=== PATIENT | female | born 1945 | race Caucasian/White ===

== ENCOUNTER → 2020-06-03 10:59 | Outpatient (CLI) | payer MEDICARE, BC, SELFPAY ==
--- NOTE | ~2020-06-03 | US_ITS ---
EXAMINATION: US retroperitoneal comp DATE: 06/03/2020 11:26 INDICATION: Bilateral hydronephrosis TECHNIQUE: Multiple grayscale, color Doppler, and pulsed Doppler images of the kidneys and renal diya vikas were obtained. COMPARISON: None. FINDINGS: The right kidney measures 10.2 x 5.4 x 5.8 cm. The left kidney measures 10.9 x 4.3 x 5.4 cm. The kidn eys demonstrate normal echogenicity. Bilateral anechoic renal cysts measuring up to 2.1 cm and 1.5 cm in the right kidney and 1.4 cm and the left kidney. There is no hydronephrosis in either kidney. No stones identified. The bladder is normal. IMPRESSION: 1. Bilateral renal cysts. Otherwise normal kidneys without hydronephrosis. Reviewed, dictated and finalized at location A.
== END ==
DX: N13.30 Unspecified hydronephrosis (principal); N28.1 Cyst of kidney, acquired
CPT/HCPCS: 76770

== ENCOUNTER → 2020-08-07 09:21 | Outpatient (CLI) | payer MEDICARE, BC, SELFPAY ==
--- NOTE | ~2020-08-07 | DEXA_ITS ---
Bone Density Report Name: Viv Contreras Age: 75 Sex: Female Ethnicity: White Date of : 1945 Indication: postmenopausal; screening for osteoporosis; height loss; prior fracture; hysterectomy; Referring Provider: LALA MOLINA Study: Bone densitometry was performed. Exam Date: August 07, 2020 Accession number: [id number] Bone Density: Region BMD T-score Z-score Classification AP Spine (L1-L4) 0.780 -2.4 0.1 Osteopenia Femoral Neck (Left) 0.599 -2.2 -0.1 Osteopenia Total Hip (Left) 0.690 -2.1 -0.2 Osteopenia Femoral Neck (Right) 0.552 -2.7 -0.5 Osteoporosis Total Hip (Right) 0.650 -2.4 -0.5 Osteopenia Total Hip Mean 0.670 -2.3 -0.4 Osteopenia World Health Organization criteria for BMD impression classify patients as: Normal (T-score at or above -1.0), Osteopenia (T-score between -1.0 and -2.5), or Osteoporosis (T-score at or below -2.5). 10-year Fracture Risk: FRAX not reported because: Some T-score for Spine Total or Hip Total or Femoral Neck at or below -2.5 Clinical Information Provided by Patient: Has had a low trauma fracture Has used the following medications: Vitamin D Has the following medical conditions: Hysterectomy Patient maximum height was 63 Menopause Age: 30 Drinks caffeinated beverages Onset of menses at age 10 Number of children 3 Impression: The patient has established osteoporosis, based on the Right Femoral Neck T-score and the existence of a prior fracture. The patient has risk factors, including: previous fracture. Discussion: HIGH RISK OF FRACTURE. BONE DENSITY IS UNDESIRABLY LOW AT ONE OR MORE SKELETAL SITES, CONSISTENT WITH POSTMENOPAUSAL OSTEOPOROSIS. This patient's lowest T-score, in a patient who has previously fractured, meets the World Health Organization's (WHO) criteria for severe osteoporosis. In untreated patients, the risk of osteoporotic fracture increases approximately two-fold for each 1.0 SD decrease in T-score. Low bone density is not the only risk factor for fracture; also consider factors such as patient's age, frailty or poor health, risk of falling, risk of injury, previous osteoporotic fracture, family history of osteoporosis, cigarette smoking, low body weight, etc. Not everyone with low bone mineral density has osteoporosis; osteomalacia and other metabolic bone disorders should also be considered. Patients who have osteoporosis should be evaluated for specific diseases and conditions (secondary causes) that may cause or contribute to bone loss. The [place] [employer]ocr[employer] (AACE) and National Osteoporosis Foundation (NOF) recommend pharmacologic intervention for all postmenopausal women whose T-score is in this range. The patient should follow a healthful lifestyle (good nutrition with adequate calcium and vitamin D, and a
== END ==
DX: M81.0 Age-related osteoporosis without current pathological fracture (principal); M85.852 Other specified disorders of bone density and structure, left thigh; M85.851 Other specified disorders of bone density and structure, right thigh
CPT/HCPCS: 77080

== ENCOUNTER → 2021-06-18 09:17 | Outpatient (CLI) | payer MEDICARE, BC, SELFPAY ==
--- NOTE | ~2021-06-18 | US_ITS ---
EXAMINATION: US retroperitoneal comp DATE: 06/18/2021 10:07 INDICATION: Bilateral hydronephrosis TECHNIQUE: Multiple ultrasound grayscale images of the kidneys were obtained. COMPARISON: 06/03/2020 FINDINGS: The right kidney measures 9.4 x 4.1 x 5.6 cm. The left kidney measures 9.6 x 5.0 x 3.9 cm. The kidney s demonstrate normal echogenicity. Small bilateral anechoic renal cysts measuring up to 1.9 cm in max imal diameter on the right and 9 mm in maximal diameter on the left. Mild bilateral hydronephrosis. No stones identified. The bladder is normal with bilateral ureteral jets visualized on color Doppler. IMPRESSION: 1. Mild bilateral hydronephrosis which is of indeterminate etiology with bilateral ureteral jets vis ualized in the bladder Reviewed, dictated and finalized at location A. IMPRESSION: 1. Mild bilateral hydronephrosis which is of indeterminate etiology with bilat eral ureteral jets visualized in the bladder
== END ==
DX: N13.30 Unspecified hydronephrosis (principal)
CPT/HCPCS: 76770

== ENCOUNTER → 2022-07-28 11:10 | Outpatient (CLI) | payer MEDICARE, BC, SELFPAY ==
--- NOTE | ~2022-07-28 | US_ITS ---
EXAMINATION: US renal BI DATE: 07/28/2022 11:40 INDICATION: Bilateral hydronephrosis TECHNIQUE: Multiple grayscale and Doppler ultrasound images of the kidneys were obtained. COMPARISON: 06/18/2021 FINDINGS: The right kidney measures 9.7 x 4.1 x 5.6 cm and contains cysts measuring up to 1.9 cm. The left kidney measures 9.2 x 4.7 x 4.6 cm and contains a 9 mm cyst. The kidneys demonstrate normal par enchymal echogenicity. There is persistent mild hydronephrosis. Bilateral ureteral jets are visualize d in the bladder. The bladder is normal. IMPRESSION: 1. Persistent mild bilateral hydronephrosis of unclear etiology. Reviewed, dictated and finalized at location B. ICAL TECH
== END ==
DX: N13.30 Unspecified hydronephrosis (principal)
CPT/HCPCS: 76775

== ENCOUNTER → 2022-10-05 12:22 | Outpatient (CLI) | payer MEDICARE, BC, SELFPAY ==
--- NOTE | ~2022-10-05 | DEXA_ITS ---
Bone Density Report Name: GAIB BONE Age: 77 Sex: Female Ethnicity: White Date of : 1945 Indication: osteopenia; height loss; prior fracture; hysterectomy; postmenopausal Referring Provider: ETHAN Study: Bone densitometry was performed. Exam Date: October 05, 2022 Accession number: [id number] Bone Density: Region BMD T-score Z-score Classification AP Spine (L1-L4) 0.798 -2.3 0.4 Osteopenia Femoral Neck (Left) 0.581 -2.4 -0.1 Osteopenia Total Hip (Left) 0.668 -2.2 -0.2 Osteopenia Femoral Neck (Right) 0.544 -2.7 -0.5 Osteoporosis Total Hip (Right) 0.639 -2.5 -0.5 Osteoporosis Total Hip Mean 0.654 -2.4 -0.4 Osteopenia World Health Organization criteria for BMD impression classify patients as: Normal (T-score at or above -1.0), Osteopenia (T-score between -1.0 and -2.5), or Osteoporosis (T-score at or below -2.5). 10-year Fracture Risk: FRAX not reported because: Some T-score for Spine Total or Hip Total or Femoral Neck at or below -2.5 Previous Exams: Region Exam Age BMD T-score BMD Change BMD Change Date g/cm2 vs Baseline vs Previous AP Spine(L1-L4) 10/05/2022 77 0.798 -2.3 0.018 0.018 08/07/2020 75 0.780 -2.4 Total Hip(Left) 10/05/2022 77 0.668 -2.2 -0.022 -0.022 08/07/2020 75 0.690 -2.1 Total Hip(Right) 10/05/2022 77 0.639 -2.5 -0.011 -0.011 08/07/2020 75 0.650 -2.4 *Denotes significance at 95% confidence level, LSC for AP Spine = 0.022 g/cm2, LSC for Total Hip = 0.027 g/cm2 Clinical Information Provided by Patient: Has had a low trauma fracture Has used the following medications: Vitamin D Has the following medical conditions: Hysterectomy Patient maximum height was 63 Menopause Age: 30 Drinks caffeinated beverages Onset of menses at age 10 Number of children 3 Impression: The patient has established osteoporosis, based on the Right Femoral Neck T-score and the existence of a prior fracture. The patient has risk factors, including: previous fracture. No significant bone loss was observed. Discussion: HIGH RISK OF FRACTURE. BONE DENSITY IS UNDESIRABLY LOW AT ONE OR MORE SKELETAL SITES, CONSISTENT WITH POSTMENOPAUSAL OSTEOPOROSIS. This patient's lowest T-score, in a patient who has previously fractured, meets the World Health Organization's (WHO) criteria for severe osteoporosis. In untreated patients, the risk of osteoporotic fracture increases approximately t
== END ==
DX: M81.0 Age-related osteoporosis without current pathological fracture (principal); M85.89 Other specified disorders of bone density and structure, multiple sites
CPT/HCPCS: 77080

== ENCOUNTER 2023-02-11 09:07 | Emergency (ER) | payer MEDICARE, BC, SELFPAY ==
[2023-02-11 09:29] VITALS: BP 165/84; PULSE 65; RESP 12; TEMP 36.9; O2SAT 96
--- NOTE | 2023-02-11 10:15 | ED.SKABFB ---
HPI - Skin/Abscess/Foreign Bdy General Chief complaint: Skin/Abscess/Foreign Body Stated complaint: Rash Time Seen by Provider: 02/11/23 10:16 Source: patient, RN notes reviewed and old records reviewed Mode of arrival: ambulatory Limitations: no limitations History of Present Illness HPI narrative: 77-year-old female who presents to [facility] with complaints of rash to right inner forearm with some vesicle formation with also new area to the left inner. Patient states she was working in the yard on Monday pulling weeds and developed a rash after being outdoors. Patient reports that rash is itchy, has applied OTC itch cream to rash. Patient denies any shortness of breath or any difficulty with swallowing, complaint: rash Onset (ago): day(s) (3) Location: LUE and RUE Treatments prior to arrival: OTC topical medication Related Data Home Medications Medication Instructions Recorded Confirmed alendronate 70 mg tablet 70 mg PO WEEKLY 02/11/23 02/11/23 alprazolam 0.25 mg tablet 0.25 mg PO DAILY 02/11/23 02/11/23 amlodipine 10 mg tablet 10 mg PO DAILY 02/11/23 02/11/23 atorvastatin 40 mg tablet 40 mg PO DAILY 02/11/23 02/11/23 metoprolol succinate 50 mg 50 mg PO DAILY 02/11/23 02/11/23 tablet,extended release 24 hr Allergies Allergy/AdvReac Type Severity Reaction Status Date / Time No Known Allergies Allergy Verified 02/11/23 09:54 Review of Systems Review of Systems: CONSTITUTIONAL: Denies fever, chills, or sweats. CARDIOVASCULAR: Denies chest pain, palpitations, or edema. RESPIRATORY: Denies cough or dyspnea. SKIN: Reports red rash to bilateral inner forearms which is itchy for 3 days duration MUSCULOSKELETAL: Denies joint pain or myalgia. NEUROLOGIC: Denies headache, numbness, or weakness. All systems reviewed & are unremarkable except as noted in HPI and below PMFSH Past Medical History Medical History (Updated 02/13/23 @ 08:06 by Risa Mcdaniel NP) Anxiety Elevated cholesterol Hypertension Surgical History Surgical History (Updated 02/13/23 @ 08:06 by Risa Mcdaniel NP) H/O: hysterectomy Social History Social History (Updated 02/13/23 @ 08:06 by Risa Mcdaniel NP) Smoking status: Never smoker Alcohol intake: current Alcohol use details: rare use Substance use type: does not use Occupation/Education: retired Gender identity (if verbalized by the patient): Female Comments At time of signature, agree with nursing past medical, surgical, social and family history. There is no relevant family history pertinent to the presenting complaint Exam Narrative: GENERAL: Well-appearing, well-nourished, and in no acute distress. HEAD: Normocephalic, atraumatic. EYES: PERRLA, conjunctivae clear, and EOMI. ENT: Mucous membranes moist. Oropharynx without edema, erythema or lesions. NECK: Supple. No lymphadenopathy CHEST: Clear to auscultation. No respiratory distress. no cough noted SAO2 96% on room air HEART: Regular rate and rhythm. SKIN: Warm, dry.? Patches of red raised rash to bilateral inner forearms that is itchy with some vesicle formation, no drainage noted NEURO:? Alert and oriented x3. PSYCH: Normal mood and affect Course Course Emergency Course: Patient is aware of diagnosis, understands and agrees to treatment plan.? Anticipatory guidance given.? Patient agrees to follow-up as directed and is aware of reasons to seek care at the emergency department. Portions of this record may have been created with voice recognition software Level of Care: Express Care Visit Vital Signs Vital signs: Vital Signs Temperature 36.9 C 02/11/23 09:29 Pulse Rate 65 02/11/23 09:29 Respiratory Rate 12 02/11/23 09:29 Blood Pressure 165/84 H 02/11/23 09:29 Pulse Oximetry 96 02/11/23 09:29 Oxygen Delivery Room Air 02/11/23 09:29 Temperature 36.9 C 02/11/23 09:29 Pulse Rate 65 02/11/23 09:29 Respiratory Rate 12
== END 2023-02-11 10:38 | disposition home or self-care (01) ==
PROVIDERS: Emergency Provider Registered Nurse
DX: L25.5 Unspecified contact dermatitis due to plants, except food (principal); E78.00 Pure hypercholesterolemia, unspecified; I10 Essential (primary) hypertension; F41.9 Anxiety disorder, unspecified
CPT/HCPCS: 99213; G0463

== ENCOUNTER → 2023-07-28 07:55 | Outpatient (CLI) | payer MEDICARE, BC, OTHER, SELFPAY ==
--- NOTE | ~2023-07-28 | US_ITS ---
Renal-Bladder ultrasound Clinical History: Hydronephrosis Technique: Real-time sonographic imaging of the kidneys and urinary bladder was performed. Findings: The right kidney measures 11.1 cm in length and the left kidney measures 10.9 cm. There is no hydronephrosis or renal calculus identified. Renal cortical echogenicity is within normal limits. No solid renal mass lesion is identified. Small bilateral renal cysts are present. The urinary bladder is moderately distended at the time of this exam. No intraluminal echoes are iden tified. No abnormal wall thickening is seen. Impression: No hydronephrosis. Small bilateral renal cysts. Reviewed, dictated and finalized at location . E PATCH [facility]OLDER Impression: No hydronephrosis. Small bilateral renal cysts.
== END ==
DX: N28.1 Cyst of kidney, acquired (principal)
CPT/HCPCS: 76770

== ENCOUNTER 2023-08-27 16:45 | Emergency (ER) | payer MEDICARE, BC, SELFPAY | END 2023-08-27 16:46 | disposition left against medical advice (07) | PROVIDERS: Emergency Provider Internal Medicine Hematology & Oncology | DX: Z53.21 Procedure and treatment not carried out due to patient leaving prior to being seen by health care provider (principal) | CPT/HCPCS: 99199 ==

== ENCOUNTER 2023-08-28 14:05 | Emergency (ER) | payer MEDICARE, BC, SELFPAY ==
--- NOTE | 2023-08-28 14:11 | ED.URI ---
HPI - URI/Sore Throat General Chief Complaint: Upper Respiratory Infection Stated Complaint: cough, wheezing Time Seen by Provider: 08/28/23 15:01 Source: patient and RN notes reviewed Mode of arrival: ambulatory Limitations: no limitations History of Present Illness HPI Narrative: 78-year-old female presents with concern for cough, hoarseness, wheezing that started on . She reports some shortness of breath after coughing fit. Reports she has been taking Robitussin without relief. MD elicited complaint: cough Related Data Home Medications Medication Instructions Recorded Confirmed alendronate 70 mg tablet 70 mg PO WEEKLY 02/11/23 08/28/23 alprazolam 0.25 mg tablet 0.25 mg PO DAILY 02/11/23 08/28/23 amlodipine 10 mg tablet 10 mg PO DAILY 02/11/23 08/28/23 atorvastatin 40 mg tablet 40 mg PO DAILY 02/11/23 08/28/23 metoprolol succinate 50 mg 50 mg PO DAILY 02/11/23 08/28/23 tablet,extended release 24 hr Allergies Allergy/AdvReac Type Severity Reaction Status Date / Time No Known Allergies Allergy Verified 08/28/23 14:42 Review of Systems Review of Systems: CONSTITUTIONAL: Denies malaise, chills, sweats, or fever. EYES: Denies visual changes, redness, or discharge. ENT: Reports rhinorrhea, congestion. Denies sinus pain, otalgia and sore throat. CARDIOVASCULAR: Denies chest pain, palpitations, or edema. RESPIRATORY: Reports cough, wheezing, exertion dyspnea. GASTROINTESTINAL: Denies abdominal pain, nausea, vomiting, diarrhea SKIN: Denies rash or itching. MUSCULOSKELETAL: Denies myalgia. NEUROLOGIC: Denies headache. All systems reviewed & are unremarkable except as noted in HPI and below PMFSH Past Medical History Medical History (Updated 08/28/23 @ 15:06 by Vandana Paul NP) Anxiety Elevated cholesterol Hypertension Surgical History Surgical History (Updated 02/13/23 @ 08:06 by Risa Mcdaniel NP) H/O: hysterectomy Social History Social History (Updated 02/13/23 @ 08:06 by Risa Mcdaniel NP) Smoking status: Never smoker Alcohol intake: current Alcohol use details: rare use Substance use type: does not use Occupation/Education: retired Gender identity (if verbalized by the patient): Female Comments At time of signature, agree with nursing past medical, surgical, social and family history. There is no relevant family history pertinent to the presenting complaint Exam Narrative: GENERAL: Well-appearing, well-nourished, and in no acute distress. HEAD: Normocephalic EYES: PERRLA, conjunctivae clear ENT: Nares clear. Mucous membranes moist. TM pearly torres with dull light reflex bilaterally; no tragal tenderness. Oropharynx not erythematous without lesions. Tonsils not enlarged and without exudate, no drooling, no hoarseness, no trismus, uvula midline. NECK: Supple. No lymphadenopathy CHEST: Expiratory wheeze throughout otherwise clear to auscultation, breath sounds equal. No rhonchi, rales, or stridor. No respiratory distress, speaks in full sentences. HEART: Regular rate and rhythm. No murmur heard. SKIN: Warm, dry, no rash. NEURO: Alert and oriented x3. PSYCH: Normal mood and affect Course Course Emergency Course: Patient is aware of diagnosis, understands and agrees to treatment plan. Anticipatory guidance given. Patient agrees to follow-up as directed and is aware of reasons to seek care at the emergency department. Portions of this record may have been created with voice recognition software Level of Care: Express Care Visit Vital Signs Vital signs: Reviewed. MDM - URI/Sore Throat MDM Narrative Medical decision making narrative: Differential diagnosis considered: Bauer virus, strep pharyngitis, allergic rhinitis, upper respiratory tract infection, sinusitis, rhinosinusitis, nasopharyngitis. viral pharyngitis, otitis media, otitis externa, pneumonia, bronchitis, viral cough syndrome, viral syndrome, and influenza. Exam findings show no acute con
== END 2023-08-28 15:18 | disposition home or self-care (01) ==
PROVIDERS: Emergency Provider Nurse Practitioner
DX: J40 Bronchitis, not specified as acute or chronic (principal); E78.00 Pure hypercholesterolemia, unspecified; I10 Essential (primary) hypertension; F41.9 Anxiety disorder, unspecified
CPT/HCPCS: 87804; 99213; G0463